=== PATIENT | male | born 1990 | race Caucasian/White ===

== ENCOUNTER 2016-06-27 22:13 | Emergency (ER) | payer OTHER, BC ==
[2016-06-27 22:21] VITALS: BP 155/91; PULSE 95; TEMP 99.2; BMI 25.8
[2016-06-27 23:09] LABS: BASOPHIL 0.8 % (0-2.0); MCH 30.6 pg (25.7-33.7); MCHC 34.4 g/dl (32.0-35.9); MEAN CELL VOLUME 89.1 fl (80-96); MEAN PLT VOLUME 7.8 fl (7.5-11.1); NEUTROPHILS 69.8 % (42.8-82.8); PLATELET COUNT 192 K/MM3 (134-434); RDW 13.1 % (11.9-15.9)
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
[2016-06-27 23:45] LABS: LDH 148 U/L (87-241); SGPT/ALT 23 U/L (12-78)
[2016-06-28 00:03] LABS: HIV 1 & 2 AB NEGATIVE; HIV 1 AGp24 NEGATIVE
== END 2016-06-27 23:38 | disposition home or self-care (01) ==
LOC: JER 22:13 → JERFT 22:13
DX: Z77.21 Contact with and (suspected) exposure to potentially hazardous body fluids (principal); Y35.891A Legal intervention involving other specified means, law enforcement official injured, initial encounter; Y93.89 Activity, other specified; Y92.89 Other specified places as the place of occurrence of the external cause; Y99.0 Civilian activity done for income or pay
CPT/HCPCS: 36415; 83615; 84460; 85025; 86704; 86706; 87340; 87389; 99281-25

== ENCOUNTER 2016-06-28 03:01 | Emergency (ER) | payer BC, OTHER ==
[2016-06-28] MEDS ORDERED: HIV POST EXPOSURE PROPHYLAXIS KIT NR ONE (03:06)
[2016-06-28] MEDS ORDERED: HIV POST EXPOSURE PROPHYLAXIS KIT PO ONE (03:18)
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
[2016-06-28 03:43] LABS: ALBUMIN 4.4 g/dl (3.4-5.0); ANION GAP 12 (8-16); BILIRUBIN,TOTAL 0.4 mg/dL (0.2-1.0); CALCIUM 9.3 mg/dL (8.5-10.1); CO2 28 mmol/L (21-32); CREATININE 1.3 mg/dL (0.7-1.3); GLUCOSE,RANDOM 107 mg/dL (74-106); SGOT/AST 20 U/L (15-37); SGPT/ALT 25 U/L (12-78); TOT PROT 7.2 g/dl (6.4-8.2)
[2016-06-28 03:44] LABS: ALK PHOS 66 U/L (45-117)
[2016-06-28 04:05] VITALS: BP 148/90; PULSE 90; TEMP 98; BMI 25.1
== END 2016-06-28 04:03 | disposition home or self-care (01) ==
LOC: JER 03:01
DX: Z77.21 Contact with and (suspected) exposure to potentially hazardous body fluids (principal); Y35.811A Legal intervention involving manhandling, law enforcement official injured, initial encounter; Y93.89 Activity, other specified; Y92.89 Other specified places as the place of occurrence of the external cause
CPT/HCPCS: 36415; 80053; 99281-25

== ENCOUNTER 2017-03-07 22:53 | Emergency (ER) | payer BC, OTHER ==
[2017-03-07 23:05] VITALS: BP 132/88; PULSE 110; TEMP 97; BMI 27.2
[2017-03-07] MEDS ORDERED: HIV POST EXPOSURE PROPHYLAXIS KIT NR ONE (23:21)
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
[2017-03-07] MEDS ORDERED: HIV POST EXPOSURE PROPHYLAXIS KIT PO ONE (23:24)
[2017-03-08 00:52] LABS: ALBUMIN 5.1 g/dl (3.4-5.0); ALK PHOS 78 U/L (45-117); ANION GAP 12 (8-16); BILIRUBIN,TOTAL 0.3 mg/dL (0.2-1.0); CALCIUM 9.2 mg/dL (8.5-10.1); CO2 24 mmol/L (21-32); CREATININE 1.2 mg/dL (0.7-1.3); GLUCOSE,RANDOM 84 mg/dL (74-106); SGOT/AST 20 U/L (15-37); SGPT/ALT 25 U/L (12-78); TOT PROT 8.2 g/dl (6.4-8.2)
[2017-03-08] MEDS ORDERED: BACITRACIN 15 GM TUBE TOPICAL OINTMENT TP ONE (01:44)
[2017-03-08] MEDS ORDERED: BACITRACIN 0.9 GM PACKET ONE (01:49)
== END 2017-03-08 02:42 | disposition home or self-care (01) ==
LOC: JER 22:53
DX: S80.211A Abrasion, right knee, initial encounter (principal); S50.312A Abrasion of left elbow, initial encounter; S50.311A Abrasion of right elbow, initial encounter; Z77.21 Contact with and (suspected) exposure to potentially hazardous body fluids; Y35.811A Legal intervention involving manhandling, law enforcement official injured, initial encounter; Y93.89 Activity, other specified; Y92.89 Other specified places as the place of occurrence of the external cause; Y99.8 Other external cause status
CPT/HCPCS: 36415; 73070-TC-LT; 73562-TC-RT; 80053; 80074; 99281-25

== ENCOUNTER 2019-02-02 18:24 | Emergency (ER) | payer OTHER ==
[2019-02-02 18:39] VITALS: BP 130/77; PULSE 69; TEMP 98; BMI 26.5
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
== END 2019-02-02 19:03 | disposition home or self-care (01) ==
LOC: JERFT 18:24
DX: S00.11XA Contusion of right eyelid and periocular area, initial encounter (principal); Y35.811A Legal intervention involving manhandling, law enforcement official injured, initial encounter; Y93.89 Activity, other specified; Y92.89 Other specified places as the place of occurrence of the external cause; Y99.0 Civilian activity done for income or pay
CPT/HCPCS: 99281-25

== ENCOUNTER 2020-10-17 20:28 | Emergency (ER) | payer OTHER ==
[2020-10-17 20:47] VITALS: BP 131/91; PULSE 108; TEMP 99; BMI 26.5
== END 2020-10-17 22:43 | disposition home or self-care (01) ==
LOC: FER 20:28
DX: S50.02XA Contusion of left elbow, initial encounter (principal); S50.12XA Contusion of left forearm, initial encounter
CPT/HCPCS: 73090-TC-LT-FY; 99284-25